=== PATIENT | female | born 1970 | race Caucasian/White ===

== ENCOUNTER 2017-09-10 14:55 | Emergency (ER) | payer BC, OTHER ==
[~2017-09-10] VITALS: Ht 157.5 cm; Wt 56.7 kg
[2017-09-10] MEDS ORDERED: UBID10 (15:02)
[2017-09-10] MEDS ORDERED: FISH OIL 1,0001 EAC1 (15:02)
[2017-09-10 15:24] LABS: BASOPHILS ABSOLUTE AUTO 0.06 K/mm3 (0.00-0.23); BASOPHILS PERCENT AUTO 1 % (0-2); EOSINOPHILS ABSOLUTE AUTO 0.04 K/mm3 (0.00-0.68); EOSINOPHILS PERCENT AUTO 1 % (0-6); Hematocrit 40.4 % (33.0-51.0); Hemoglobin 14.2 g/dL (11.5-16.0); IMMATURE GRAN ABSOLUTE AUTO 0.03 K/mm3 (0.00-0.10); IMMATURE GRAN PERCENT AUTO 0 % (0-1); LYMPHOCYTES ABSOLUTE AUTO 1.61 K/mm3 (0.84-5.20); LYMPHOCYTES PERCENT AUTO 21 % (21-46); MONOCYTES ABSOLUTE AUTO 1.26 K/mm3 (0.16-1.47); MONOCYTES PERCENT AUTO 16 % (4-13); Mean Corpuscular HGB 31.9 pg (26.0-34.0); Mean Corpuscular HGB Conc 35.1 g/dL (31.5-36.5); Mean Corpuscular Volume 91 fL (80-100); Mean Platelet Volume 10.3 fL (9.1-12.4); NEUTROPHILS ABSOLUTE AUTO 4.77 K/mm3 (1.96-9.15); NEUTROPHILS PERCENT AUTO 61 % (41-73); Platelet Count 199 K/mm3 (150-400); RDW Coefficient Variation 12.5 % (11.7-14.2); RDW Standard Deviation 41.6 fL (35.1-46.3); Red Blood Cell Count 4.45 M/mm3 (3.80-5.20); White Blood Cell Count 7.77 K/mm3 (4.00-11.30)
[2017-09-10 15:41] LABS: Alanine Aminotransfer (ALT/SGP 94 U/L (12-78); Albumin, Blood 3.5 g/dL (3.4-5.0); Albumin/Globulin Ratio 0.8 (0.8-1.8); Alk Phos 118 U/L (50-136); Anion Gap 11 mmol/L (6-16); Aspartate Aminotrans (AST/SGOT 175 U/L (12-37); Bilirubin, Total 0.5 mg/dL (0.1-1.0); Blood Urea Nitrogen 5 mg/dL (8-24); Bun/Creatinine Ratio 11.3 (12.0-20.0); CO2, Blood 27 mmol/L (21-32); Calcium, Blood 9.6 mg/dL (8.5-10.1); Chloride, Blood 98 mmol/L (98-108); Creatinine, Blood 0.44 mg/dL (0.40-1.00); Globulin, Blood 4.3 g/dL (2.2-4.0); Glomerular Filtration Rate >60 (60-); Glucose, Blood 126 mg/dL (70-99); Potassium, Blood 3.5 mmol/L (3.5-5.5); Sodium, Blood 136 mmol/L (136-145); Total Protein, Blood 7.8 g/dL (6.4-8.2)
[2017-09-10] MEDS ORDERED: Lomotil Tablet1 EACH PO (16:07)
[2017-09-10] MEDS ORDERED: PROM25 PO (16:07)
== END 2017-09-10 16:14 | disposition home or self-care (01) ==
LOC: ER 14:55
PROVIDERS: Emergency Medicine
DX: R11.2 Nausea with vomiting, unspecified (principal); R19.7 Diarrhea, unspecified; F17.210 Nicotine dependence, cigarettes, uncomplicated; Z90.49 Acquired absence of other specified parts of digestive tract
CPT/HCPCS: 80053; 85025; 96365; 96375; 99283; J2405; J2550; J7030

== ENCOUNTER 2021-12-23 16:44 | Inpatient (IN) | payer BC, OTHER ==
[~2021-12-23] VITALS: Ht 157.5 cm; Wt 67.7 kg
[~2021-12-23 16:44] MED LIST: FISH OIL 1,0001 EAC1; Lomotil Tablet1 EACH PO; PROM25 PO; UBID10
[2021-12-23 19:06] LABS: BASOPHILS ABSOLUTE AUTO 0.06 K/mm3 (0.00-0.23); BASOPHILS PERCENT AUTO 1 % (0-2); EOSINOPHILS ABSOLUTE AUTO 0.07 K/mm3 (0.00-0.68); EOSINOPHILS PERCENT AUTO 1 % (0-6); IMMATURE GRAN ABSOLUTE AUTO 0.08 K/mm3 (0.00-0.10); IMMATURE GRAN PERCENT AUTO 1 % (0-1); LYMPHOCYTES ABSOLUTE AUTO 1.51 K/mm3 (0.84-5.20); LYMPHOCYTES PERCENT AUTO 17 % (21-46); MONOCYTES ABSOLUTE AUTO 1.26 K/mm3 (0.16-1.47); MONOCYTES PERCENT AUTO 14 % (4-13); Mean Corpuscular HGB 33.8 pg (26.0-34.0); Mean Corpuscular HGB Conc 34.9 g/dL (31.5-36.5); Mean Corpuscular Volume 97 fL (80-100); Mean Platelet Volume 12.2 fL (9.1-12.4); NEUTROPHILS ABSOLUTE AUTO 6.01 K/mm3 (1.96-9.15); NEUTROPHILS PERCENT AUTO 67 % (41-73); NRBC ABSOLUTE 0.03 K/mm3 (0.00-0.02); NRBC Auto 0.3 /100 WBC (0.0-0.2); Platelet Count 60 K/mm3 (150-400); RDW Coefficient Variation 15.9 % (11.7-14.2); RDW Standard Deviation 55.9 fL (35.1-46.3); Red Blood Cell Count 1.54 M/mm3 (3.80-5.20); White Blood Cell Count 8.99 K/mm3 (4.00-11.30)
[2021-12-23 19:15] LABS: Albumin, Blood 2.1 g/dL (3.4-5.0); Albumin/Globulin Ratio 0.4 (0.8-1.8); Bun/Creatinine Ratio 25.5 (12.0-20.0); Calcium, Blood 7.8 mg/dL (8.5-10.1); Creatinine, Blood 0.28 mg/dL (0.40-1.00); Globulin, Blood 4.8 g/dL (2.2-4.0); Potassium, Blood 2.8 mmol/L (3.5-5.5); Total Protein, Blood 6.9 g/dL (6.4-8.2)
[2021-12-23 19:26] LABS: Hematocrit 14.9 % (33.0-51.0); Hemoglobin 5.2 g/dL (11.5-16.0)
[2021-12-23 22:41] LABS: International Normalized Ratio 1.42; Prothrombin Time Results 14.6 Sec (9.7-11.5)
--- NOTE | 2021-12-24 01:32 | NUR ---
REPORT FROM SHARED SERVICES MANAGER, PATIENT TO ROOM VIA STRETCHER AT 0035, SLID TO BED. PATIENT IS ALERT AND ORIENTED X4, COMPLAINING OF WEAKNESS, TREMORS PRESENT (PATIENT STATES TREMORS ARE NORMAL). PATIENT FORGETFUL OF WEAKNESS AND LIMITATIONS. 02 SATS >93% ON RA, PATIENT DENIES SOB. HR SR @90s, BP STABLE, DENIES CP PRESSURE. INCONTINENT AT TIMES, ATTENDS IN PLACE. ER REPORTED DARK STOOL, PATIENT DENIES BLOOD IN STOOL OR VOMITTING. PRBCs TRANSFUSING. PATIENT ABLE TP REPOSITION SELF IN BED. CALL LIGHT IN REACH. BED ALARM ON.
[2021-12-24 02:12] LABS: Source, Urine Straight Cath
[2021-12-24 02:37] LABS: Appearance, Urine Clear (Clear); Bilirubin, Urine Neg (Neg); Blood, Urine 1+ (Neg); Color, Urine Yellow (P-Yellow); Glucose Qualitative, Urine Neg (Neg); Ketones, Urine Neg (Neg); Leukocyte Esterase, Urine Neg (Neg); Nitrite, Urine Neg (Neg); Protein, Urine Neg (Neg); Specific Gravity, Urine 1.005 (1.003-1.022); Urobilinogen, Urine 2+ (Normal)
[2021-12-24 02:54] LABS: Bacteria Rare /hpf; Red Blood Cells, Urine 0-2 /hpf (0-2); Squamous Epithelial Cells Few /hpf (Few); White Blood Cells, Urine 0-2 /hpf (0-5)
[2021-12-24 05:48] LABS: Hematocrit 21.4 % (33.0-51.0); Hemoglobin 7.3 g/dL (11.5-16.0); Mean Corpuscular HGB 33.2 pg (26.0-34.0); Mean Corpuscular HGB Conc 34.1 g/dL (31.5-36.5); Mean Corpuscular Volume 97 fL (80-100); Mean Platelet Volume 12.3 fL (9.1-12.4); NRBC ABSOLUTE 0.02 K/mm3 (0.00-0.02); NRBC Auto 0.3 /100 WBC (0.0-0.2); Platelet Count 64 K/mm3 (150-400); RDW Coefficient Variation 17.6 % (11.7-14.2); RDW Standard Deviation 58.6 fL (35.1-46.3); White Blood Cell Count 6.79 K/mm3 (4.00-11.30)
--- NOTE | 2021-12-24 05:51 | NUR ---
SHIFT SUMMARY PATIENT IS ALERT AND ORIENTED X4. TREMORS REMAINS PRESENT. PATIENT ABLE TO MOVE ALL EXTREMETIES AND REPOSITION SELF IN BED. 02 SATS >93% ON RA, DENIES SOB. HR SR @90s, BP STABLE. PATIENT DENIES CP PRESSURE. 2 UNITS PRBCs TRANSFUSED. PROTONIX INF. PATIENT HAS GOOD URINE OUTPUT. CIWA 5 OR LESS. NO STOOLS WHILE IN PCU. CALL LIGHT IN REACH.
[2021-12-24 05:52] LABS: International Normalized Ratio 1.36
[2021-12-24 06:00] LABS: Albumin, Blood 2.1 g/dL (3.4-5.0); Albumin/Globulin Ratio 0.4 (0.8-1.8); Bilirubin, Total 6.4 mg/dL (0.1-1.0); Bun/Creatinine Ratio 18.5 (12.0-20.0); Calcium, Blood 7.5 mg/dL (8.5-10.1); Creatinine, Blood 0.32 mg/dL (0.40-1.00); Globulin, Blood 4.7 g/dL (2.2-4.0); Magnesium, Blood 1.3 mg/dL (1.6-2.4); Potassium, Blood 3.3 mmol/L (3.5-5.5); Total Protein, Blood 6.8 g/dL (6.4-8.2)
[2021-12-24 09:08] LABS: Hematocrit 21.1 % (33.0-51.0); Hemoglobin 7.4 g/dL (11.5-16.0)
[2021-12-24 09:43] LABS: Albumin, Blood 2.1 g/dL (3.4-5.0); Albumin/Globulin Ratio 0.4 (0.8-1.8); Bilirubin, Total 7.4 mg/dL (0.1-1.0); Calcium, Blood 7.6 mg/dL (8.5-10.1); Creatinine, Blood 0.29 mg/dL (0.40-1.00); Globulin, Blood 4.8 g/dL (2.2-4.0); Potassium, Blood 3.3 mmol/L (3.5-5.5); Total Protein, Blood 6.9 g/dL (6.4-8.2)
[2021-12-24 13:08] LABS: Hematocrit 21.1 % (33.0-51.0); Hemoglobin 7.4 g/dL (11.5-16.0)
[2021-12-24 17:41] LABS: Hematocrit 20.7 % (33.0-51.0); Hemoglobin 7.3 g/dL (11.5-16.0)
[2021-12-24 17:45] LABS: Bun/Creatinine Ratio 18.6 (12.0-20.0); Calcium, Blood 7.1 mg/dL (8.5-10.1); Creatinine, Blood 0.38 mg/dL (0.40-1.00); Potassium, Blood 3.8 mmol/L (3.5-5.5)
--- NOTE | 2021-12-24 18:06 | NUR ---
SHIFT SUMMARY A&Ox4, VSS, SPO2> 92% RA, SR-ST 90-110'S. QT PROLONGATION SEE EKG IN CHART, MD NOTIFIED. PT NPO SINCE 1300 FOR EGD. FAMILY AT BEDSIDE. PROTONIX GTT, OCTREOTIDE GTT, AND NS GTT INFUSING PER ORDER. CIWA SCORES RANGING FROM 8-6, ADMINISTERED ONE 25MG DOSE OF LIBRIUM. WILL CONINTUE TO MONITOR UNTIL AND PROVIDE CARE REPORT TO NOC.
--- NOTE | 2021-12-24 18:40 | NUR ---
THIS RN AGREES W/ STUDENT NURSE DOCUMENATION THIS SHIFT.
--- NOTE | 2021-12-24 19:07 | NUR ---
BROUGHT TO [facility] ADMIT TO UNIT PROPROCEDURE STARTED. STATES NPO NO IMPLANTS
--- NOTE | 2021-12-24 19:25 | NUR ---
12/24/211924 Liam Herzog See Anesthesia record DR OJEDA
--- NOTE | 2021-12-24 20:30 | NUR ---
ASSUMED CARE OF PATIENT AT APPROXIMATELY 1900 FROM CUBA Castrejon RN AND MANAGER SOLAR ELIOT. PATIENT ALERT; ORIENTED AT TIMES; FORGETUL AND CONFUSED AT TIMES. PATIENT ATTEMPTS TO AMBULATE INDEPENDENTLY; FALL RISK; TREMOR NOTED. PATIENT PULLED IV OUT 30 MINUTES AFTER COMING BACK FROM EGD; PATIENT LEFT FOR EGD AT 1900 AND RETURNED AT 1900; NO INTERVENTIONS. PATIENT'S WAS IN ROOM WHEN SHE LEFT FOR EGD AND RETURNED AROU 2024; PATIENT WAS GIVEN A WATER BOTTLE WHILE WAS HERE. PATIENT DENIES NUMBNESS, TINGLING, DIZZINESS, NAUSEA, OR PAIN. CIWA 8; MEDICATED PER EMAR. OCRETOTIDE AND PROTONIX INFUSING PER ORDERS. PATIENT LIFTS HIP FOR BEDPAN. SR ON TELE; PROLONGED QT; MD AWARE PER DAYSHIFT; OXYGEN SATURATION ABOVE 90% ON ROOM AIR. SCDS IN PLACE. ATTENDS IN PLACE.
--- NOTE | 2021-12-24 21:41 | NUR ---
THIS RN WALKS INTO ROOM BECAUSE PATIENT IS LEANING OVER BED OVER PURSE AND PUTS BLUE TUBE INTO PURSE; PATIENT STATES WAS "GETTING A MINT". WHEN ASKED ABOUT BLUE TUBE PATIENT STATE IT IS A VAPE; VAPE PLACED IN CLEAR BAG AND PUT ON SHELF BY TV AND PATIENT EDUCATED ON NO SMOKING/VAPING POLICY FOR HOSPITAL AND PATIENT CAN HAVE A NICOTINE PATCH; WILL CALL HOSPITALIST FOR ORDER.
--- NOTE | 2021-12-24 22:10 | NUR ---
CALLED DR. BERRY TO REPORT INCREASE IN CIWA; ATIVAN IV IS CURRENTLY Q2 AND NOT AVAILABLE AND LIBRUIM WAS GIVEN 1.5 HOURS AGO AND NOT AVAILABLE; ORDERS TO INCREASE FREQUENCY FROM Q2 TO Q1 HOUR FOR FREQUENCY AND CHANGE DOSE TO 1-[address] BERRY ABOUT PATIENT VAPING IN ROOM AND REQUEST FOR NICOTINE PATCH; ORDERS FOR 21MG NICOTINE PATCH.
--- NOTE | 2021-12-24 22:15 | NUR ---
ASSUMED CARE OF PATIENT AT APPROXIMATELY 1900 FROM CUBA Castrejon RN AND WAREHOUSE ASSOCIATE DRIVER ELIOT. PATIENT ALERT; ORIENTED AT TIMES; FORGETUL AND CONFUSED AT TIMES. PATIENT ATTEMPTS TO AMBULATE INDEPENDENTLY; FALL RISK; TREMOR NOTED. PATIENT PULLED IV OUT 30 MINUTES AFTER COMING BACK FROM EGD; PATIENT LEFT FOR EGD AT 1900 AND RETURNED AT 1900; NO INTERVENTIONS. PATIENT'S WAS IN ROOM WHEN SHE LEFT FOR EGD AND RETURNED AROU 2024; PATIENT WAS GIVEN A WATER BOTTLE WHILE WAS HERE. PATIENT DENIES NUMBNESS, TINGLING, DIZZINESS, NAUSEA, OR PAIN. CIWA 8; MEDICATED PER EMAR. OCRETOTIDE AND PROTONIX INFUSING PER ORDERS. PATIENT LIFTS HIP FOR BEDPAN. SR ON TELE; PROLONGED QT; MD AWARE PER DAYSHIFT; OXYGEN SATURATION ABOVE 90% ON ROOM AIR. SCDS IN PLACE. ATTENDS IN PLACE.
[2021-12-24 22:33] LABS: Hematocrit 20.1 % (33.0-51.0); Hemoglobin 6.8 g/dL (11.5-16.0)
--- NOTE | 2021-12-24 22:44 | NUR ---
CALLED DR. BERRY HEMOGLOBIN FROM 7.3 TO 6.8; EGD TONIGHT AND NOT ACTIVE BLEED REPORTED; ORDERS FOR 1 UNIT RBC AND RECHECK HEMOGLOBIN ONE HOUR AFTER.
[2021-12-25 03:53] LABS: BASOPHILS ABSOLUTE AUTO 0.07 K/mm3 (0.00-0.23); BASOPHILS PERCENT AUTO 1 % (0-2); EOSINOPHILS ABSOLUTE AUTO 0.24 K/mm3 (0.00-0.68); EOSINOPHILS PERCENT AUTO 3 % (0-6); Hematocrit 24.4 % (33.0-51.0); Hemoglobin 8.3 g/dL (11.5-16.0); IMMATURE GRAN ABSOLUTE AUTO 0.06 K/mm3 (0.00-0.10); IMMATURE GRAN PERCENT AUTO 1 % (0-1); LYMPHOCYTES ABSOLUTE AUTO 0.93 K/mm3 (0.84-5.20); LYMPHOCYTES PERCENT AUTO 12 % (21-46); MONOCYTES ABSOLUTE AUTO 1.09 K/mm3 (0.16-1.47); MONOCYTES PERCENT AUTO 15 % (4-13); Mean Corpuscular HGB 32.5 pg (26.0-34.0); Mean Corpuscular Volume 96 fL (80-100); Mean Platelet Volume 11.5 fL (9.1-12.4); NEUTROPHILS ABSOLUTE AUTO 5.11 K/mm3 (1.96-9.15); NEUTROPHILS PERCENT AUTO 68 % (41-73); Platelet Count 65 K/mm3 (150-400); RDW Coefficient Variation 19.9 % (11.7-14.2); RDW Standard Deviation 66.6 fL (35.1-46.3); Red Blood Cell Count 2.55 M/mm3 (3.80-5.20)
[2021-12-25 04:09] LABS: Albumin/Globulin Ratio 0.4 (0.8-1.8); Bun/Creatinine Ratio 16.9 (12.0-20.0); Calcium, Blood 7.1 mg/dL (8.5-10.1); Creatinine, Blood 0.36 mg/dL (0.40-1.00); Globulin, Blood 4.9 g/dL (2.2-4.0); Potassium, Blood 3.9 mmol/L (3.5-5.5); Total Protein, Blood 6.9 g/dL (6.4-8.2)
--- NOTE | 2021-12-25 06:11 | NUR ---
PATIENT SLEPT ABOUT FIVE HOURS OFF AND ON; ATTEMPTS TO AMBULATE INDEPENDENTLY T/O THE NIGHT. MEDICATED FOR CIWA UP TO 12. 1 UNIT OF RBC INFUSING AND HGB UP TO 8.3; NO OTHER ACUTE CHANGES.
[2021-12-25 07:12] LABS: HBSAG SCREEN Negative (Negative); HCV ANTIBODY <0.1 (0.0-0.9); HEP B CORE AB, TOT Negative (Negative)
--- NOTE | 2021-12-25 11:17 | NUR ---
SUBSTANCE UPDATE VAPE PEN IN BAG ON SHELF IN PT RM. PT REQUESTING BAG BE HANDED TO HER. PT INFORMED BAG W/ PEN TO REMAIN ON SHELF. PT FAMILY MEMBER TO RM, FOUND TO HAVE GIVEN VAPE PEN TO PT. PT REMINDED VAPE PEN USE NOT ALLOWED IN HOSPITAL RM. PT AGREEABLE TO THIS RN REMOVING PEN FROM RM & PLACING IN PT's LOCKED MED BOX W/ AGREEMENT TO RETURN TO PT UPON DISCHARGE. ALCOHOL - PT REPORTS DRINKING 12 WHITE CLAWS A DAY DURING WEEKEND DAYS & 5 WHITE CLAWS A DAY WEEKDAYS. PT REPORTS DAILY TEQUILA & WHISKY 2 YRS AGO BUT REPORTS ONLY AN OCCASSIONAL SALAS NOW. PT REPORTS WANTING TO REFRAIN FROM DRINKING AFTER DISCUSSION W/ MD LYN THIS AM. PT REPORTS "I WANT TO STOP. I PLAN TO QUIT, BUT I KNOW I WILL END UP STARTING UP AGAIN." PT FURTHER STATES "I HAVE ONE MORE CASE OF WHITE CLAWS AT HOME THAT I WILL FINISH, BUT THEN I WON'T DRINK AFTER THAT." PT ENCOURAGED TO HAVE WHITE CLAWS REMOVED FROM HOME IF SHE PLANS TO REFRAIN FROM DRINKING. PT REPORTS ANTIDEPRESSANT MEDICATION WILL HELP HER TO NOT DRINK ALCOHOL BECAUSE "I JUST NEED SOMETHING TO HELP." PT REPORTS DOES NOT DRINK ALCOHOL & REPORTS HE WILL BE ABLE TO HELP HER STOP DRINKING.
[2021-12-25 12:29] LABS: Hematocrit 24.1 % (33.0-51.0)
[2021-12-25 17:10] LABS: ANA DIRECT Negative (Negative); ANTI-DNA (DS) AB QN 4 IU/mL (0-9); RNP ANTIBODIES 0.4 AI (0.0-0.9); SJOGREN'S ANTI-SS-A <0.2 AI (0.0-0.9); SJOGREN'S ANTI-SS-B <0.2 AI (0.0-0.9); SMITH ANTIBODIES <0.2 AI (0.0-0.9)
--- NOTE | 2021-12-25 18:34 | NUR ---
SHIFT SUMMARY PT A&O X4 W/ SOME FORGETFULNESS. VSS. MONITOR SHOWING SR, HR 70's-90's. SPO2 > 92% ON RA W/ 2L NC APPLIED D/T DESAT TO 87% WHILE SLEEPING AT ONE POINT THIS SHIFT. PT MADE MEDICAL NO TELEMETRY THIS SHIFT. PROTONIX GTT TRANSITIONED TO PO. OCTREOTIDE GTT INFUSING PER ORDERS W/ PLAN TO INFUSE UNTIL TOMORROW @ 0900 PER MD LOPEZ INSTRUCTION. PT W/ NO SIGNS OF BLEEDING. PT RESTLESS & FIDGETING MOST OF THE SHIFT. PT CIWA: 5-10 THIS SHIFT, MEDICATED W/ PRN PO LIBRIUM X2 THIS SHIFT & PRN IV ATIVAN X1 THIS SHIFT. PT VOIDING IN BEDPAN WELL HAVING EPISODES OF INCONTINENCE. PT PURSE TAKEN HOME BY PT THIS SHIFT. PT VAPE PEN REMAINS LOCKED IN PT MED DRAWER. BED ALARM ON.
--- NOTE | 2021-12-25 20:38 | NUR ---
ASSUMED CARE OF PATIENT AT APPROXIMATELY 1900 FROM CUBA Castrejon RN. PATIENT ALERT; ORIENTED AT TIMES; FORGETUL AND CONFUSED AT TIMES. PATIENT ATTEMPTS TO AMBULATE INDEPENDENTLY; FALL RISK; CIWA 11. PATIENT PAIN, DENIES NUMBNESS, TINGLING, DIZZINESS, OR NAUSEA. MEDICATED PER EMAR. OCRETOTIDE INFUSING PER ORDERS. PATIENT LIFTS HIP FOR BEDPAN. MEDICAL NO TELE STATUS; OXYGEN SATURATION ABOVE 90% ON ROOM AIR. ATTENDS IN PLACE DUE TO INCONTINENCE; USES BEDPAN AT TIMES.
--- NOTE | 2021-12-26 03:45 | NUR ---
PATIENT VERY IRRITABLE; PULLING ON POWERGLIDE, DISROBING, PULLING ON OTHER LINES AND TUBES; VERY CONFUSED; PATIENT STATES LOCATION IS "YOUR HOUSE IN [place]" AND STATES SHE IS NOT IN THE HOSPITAL. THIS RN UNABLE TO LEAVE PATIENT ROOM DUE TO PATIENT CONTINUOUSLY ATTEMPTING TO GET OUT OF BED; PATIENT FALL RISK; PATIENT HAS TREMOR; WEAKNESS.
--- NOTE | 2021-12-26 04:10 | NUR ---
THIS RN UNABLE TO LEAVE ROOM; STUDENT SUCCESS ADVISOR FARIHA MARCIAL CALLED DR. DEAN TO REPORT NO MORE ATIVAN AVAILABLE AT THIS TIME FOR INCREASING CIWA; LAST ATIVAN GIVEN AROUND 0330; PATIENT REQUIRES LEDY DUE TO FALL RISK AND ATTEMPTING TO GET OUT OF BED CONTINUOUSLY; PATIENT PULLING AT ALL LINES, CORDS, AND TUBES; ORDERS FOR LEDY, WRIST RESTRAINTS, AND FOUR SIDE RAILS. ORDER ALSO GIVEN TO STUDENT SUCCESS ADVISOR FOR ADDITIONAL ONE TIME DOSE OF 2MG IV ATIVAN NOW.
[2021-12-26 04:47] LABS: BASOPHILS PERCENT AUTO 1 % (0-2); EOSINOPHILS ABSOLUTE AUTO 0.23 K/mm3 (0.00-0.68); EOSINOPHILS PERCENT AUTO 3 % (0-6); Hematocrit 25.4 % (33.0-51.0); Hemoglobin 8.6 g/dL (11.5-16.0); IMMATURE GRAN ABSOLUTE AUTO 0.11 K/mm3 (0.00-0.10); IMMATURE GRAN PERCENT AUTO 1 % (0-1); LYMPHOCYTES ABSOLUTE AUTO 1.13 K/mm3 (0.84-5.20); LYMPHOCYTES PERCENT AUTO 13 % (21-46); MONOCYTES ABSOLUTE AUTO 1.49 K/mm3 (0.16-1.47); MONOCYTES PERCENT AUTO 17 % (4-13); Mean Corpuscular HGB 32.2 pg (26.0-34.0); Mean Corpuscular HGB Conc 33.9 g/dL (31.5-36.5); Mean Corpuscular Volume 95 fL (80-100); Mean Platelet Volume 11.2 fL (9.1-12.4); NEUTROPHILS ABSOLUTE AUTO 5.66 K/mm3 (1.96-9.15); NEUTROPHILS PERCENT AUTO 65 % (41-73); Platelet Count 78 K/mm3 (150-400); RDW Coefficient Variation 20.1 % (11.7-14.2); Red Blood Cell Count 2.67 M/mm3 (3.80-5.20); White Blood Cell Count 8.72 K/mm3 (4.00-11.30)
[2021-12-26 05:09] LABS: Albumin/Globulin Ratio 0.4 (0.8-1.8); Bilirubin, Total 5.2 mg/dL (0.1-1.0); Bun/Creatinine Ratio 7.5 (12.0-20.0); Creatinine, Blood 0.4 mg/dL (0.40-1.00); Globulin, Blood 5.1 g/dL (2.2-4.0); Potassium, Blood 3.6 mmol/L (3.5-5.5); Total Protein, Blood 7.1 g/dL (6.4-8.2)
--- NOTE | 2021-12-26 05:29 | NUR ---
PATIENT CONTINUES TO THRASH IN BED; PULLING ON EVERYTHING WITHIN REACH; PATIENT REFUSED PO PROTONIX THIS AM AND REPORTS "I WANT TO FIND SCISSORS AND MY KIDS".
--- NOTE | 2021-12-26 06:39 | NUR ---
PATIENT SLEPT MAYBE TWO HOURS LAST NIGHT; CONTINUES TO PULL AT RESTRAINTS AND ATTEMPTING TO KICK LEGS OVER SIDE OF BED; VERY CONFUSED. INCONTINENT OF LARGE AMOUNTS OF URINE. NO OTHER ACUTE CHANGES TO REPORT.
--- NOTE | 2021-12-26 07:25 | NUR ---
ASSUMED CARE OF PATIENT AT 0700. PATIENT IS NOT INTERACTING STAFF THIS MORNING AND NOT ANSWERING QUESTION. LEDY AND BILATERAL SOFT WRISTRAINT STILL IN PLACE FOR SAFETY. PATIENT CONTINUE TO PULL LINES AND TRYING TO GET OOB WHEN AWAKE. VSS. PATIENT ON TELEMETRY WITH SR HR 80'S. PATIENT ON RA WITH SPO2 99-100%. OCTREOTIDE IS CURRENTLY INFUSING AND PLAN TO DISCONTINUE AT 0900. BED ALRAM IS ON AND IN LOW POSITION.
--- NOTE | 2021-12-26 16:06 | NUR ---
DR HANSON IN ROOM THIS TIME GIVING PATIENT'S DAUGHTER (BALJIT) AN UPDATE REGARDING PATIENT CONDITION.
--- NOTE | 2021-12-26 17:39 | NUR ---
PATIENT ALERT TO SELF. CONTINUED TO BE RESTLESS AND TRIED TO SWING BOTH LEGS OOB OFF AND ON. CIWA SCORE WAS 14. PATIENT RECEIVED 1 DOSE OF LIBRIUM & 1 DOSE OF ATIVAN SEE EMAR FOR FURTHER DETAILS. PATIENT IS INCONTINENT OF BLADDER THROUGHOUT THE DAY AND NO BM TODAY. LEDY & SOFT WRIST RESTRAINTS INPLACE FOR SAFETY. PATIENT SLEEPING AT THIS TIME. SPOUSE AT BEDSIDE. BED IN LOW POSITION. CALL LIGHT IN REACH. WILL GIVE REPORT TO ONCOMING RN.
--- NOTE | 2021-12-26 19:38 | NUR ---
THIS RN AGREES W/ STUDENT NURSE DOCUMENATION THIS SHIFT.
--- NOTE | 2021-12-26 22:02 | NUR ---
PT IS ALERT AND ORIENTED TO SELF AND LOCATION ([facility]). PT HAS CLEAR LUNG SOUNDS. HR IN THE 90'S AND SR. PT IS INCONTINENT WITH ATTENDS IN PLACE. HAS LEDY VEST AND BILATERAL WRIST RESTRAINTS IN PLACE. PT SPEECH IS GARBLED AT TIMES, BUT RESPONDS TO APPROPRIATELY TO SOME QUESTIONS. PT STATED SHE WANTED SCISSORS AND TO GO TO KITCHEN. PT IS COOPERATIVE WHEN PROVIDING CARE, BUT PULLS AT RESTRAINTS OCCASIONALLY AFTER PROVIDING CARE. PT IS STATED TO HAVE DARK, FOUL SMELLING URINE PER RN.
[2021-12-27 04:06] LABS: Hematocrit 25.7 % (33.0-51.0); Hemoglobin 8.5 g/dL (11.5-16.0)
[2021-12-27 04:20] LABS: Bun/Creatinine Ratio 10.8 (12.0-20.0); Calcium, Blood 8.2 mg/dL (8.5-10.1); Creatinine, Blood 0.37 mg/dL (0.40-1.00); Potassium, Blood 3.4 mmol/L (3.5-5.5)
--- NOTE | 2021-12-27 05:51 | NUR ---
PT STATES THAT SHE IS FEELING BETTER TODAY. STILL CONFUSED ABOUT WHERE SHE'S AT. STATES SHE'S IN [place] AND DOESN'T BELIEVE SHE'S IN THE HOSPITAL. PT SAID IT IS THURSDAY. PT IS MORE COHERENT WHILE VERBALIZING. SPEECH IS STILL SOMEWHAT GARBLED.
--- NOTE | 2021-12-27 07:40 | NUR ---
ASSUMED CARE OF PATIENT AT 0700. PATIENT IS ABLE TO TELL THIS SN HER NAME, DATE OF , MONTH, YEAR AND DATE FOR TODAY, BUT NOT ABLE TO TELL THE RIGHT LOCATION OF WERE SHE AT THIS MOMENT. PATIENT REPORT SHE IS STILL AT HOME. THIS SN REORIENT PATIENT THAT SHE STILL IN THE HOSPITAL. PATIENT SPOUSE AT BEDSIDE. PATIENT REPORT SHE HAD A GOOD NIGHT SLEPT LAST NIGHT. PATIENT IS MORE AWAKE AND ANSWER TO QUESTION APPROPRIATELY. VSS, NO C/O CP, NO N/V, ON TELEMETRY, LUNGS CLEAR, UNLABORED BREATHING. PATIENT IS ON RA WITH SPO2 94-95%. PATIENT ON LEDY VEST RESTRAINT AND 4 SIDERAILS UP FOR SAFETY. BED ALARM ON AND LOW POSITION. CALL LIGHT IN REACH.
--- NOTE | 2021-12-27 09:47 | NUR ---
DR HANSON WAS IN ROOM GIVING THE PATIENT'S UPDATE REGARDING HER CONDITION.
[2021-12-27 15:07] LABS: MITOCHONDRIAL (M2) ANTIBODY <20.0 Units (0.0-20.0)
--- NOTE | 2021-12-27 17:47 | NUR ---
SHIFT SUMMARY PATIENT STILL CONFUSED, TRIED TO GET-OUT OF BED A COUPLE OF TIMES BUT REDIRECTABLE. LEDY VEST AND FOUR SIDE RAILS UP IN PLACE FOR SAFETY. PATIENT USED BEDPAN COUPLE OF TIMES AND THE REST ARE INCONTINENT VOID THROUGHOUT THE DAY. PATIENT SLEPT OFF AND ON. CALM AND COOPRATIVE WITH CARE. CIWA SCORE WAS 8 THIS AM. RECEIVED 1 DOSE OF LIBRIUM 25 MG AND TOLERATED WELL. ON TELE SR 85 HR. NO N/V, NO CHEST PAIN/CHEST DISCOMFORT. NO BM THIS SHIFT. ATE 15% OF HER DINNER. BED IN LOW POSITION AND CALL LIGHT IN REACH.
--- NOTE | 2021-12-28 04:01 | NUR ---
SHIFT SUMMARY PT IS STILL CONFUSED AND CONTINUES TO ATTEMPT TO GET OOB WITHOUT ASSISTANCE. PT REMAINS A HIGH FALL RISK, LEDY VEST IN PLACE FOR SAFETY. SHE SLEEPS OFF AND ON THIS SHIFT. CIWA SCORES ARE LOW AND PT HAS NOT NEEDED LIBRIUM. SHE HAS BEEN INCONTINENT OF URINE. VITALS ARE STABLE. NO ACUTE CHANGES IN ASSESSMENT. BED IN LOWEST POSITION, CALL LIGHT WITHIN REACH.
[2021-12-28 04:34] LABS: Hematocrit 25.4 % (33.0-51.0); Hemoglobin 8.4 g/dL (11.5-16.0)
[2021-12-28 04:55] LABS: Bun/Creatinine Ratio 12.7 (12.0-20.0); Calcium, Blood 8.3 mg/dL (8.5-10.1); Creatinine, Blood 0.39 mg/dL (0.40-1.00); Potassium, Blood 3.5 mmol/L (3.5-5.5)
--- NOTE | 2021-12-28 07:34 | NUR ---
Pt is alert, conversant this morning, and mostly appropriate in conversation. STates that it has been "way too many days here in the hospital." Orientation seems better than yesterday, however speech is still slurred. Assisted to sit up and drink some ice water without the straw. No apparent difficulty with this. She was able to hold the cup herself. Continues to have large amounts of urinary incontinence.
--- NOTE | 2021-12-28 08:07 | NUR ---
ASSUMED CARE OF PATIENT AT 0700. PATIENT IS A&O. PATIENT IS ABLE TO TELL THIS SN THE PLACE OF WHERE SHE AT, BUT SHE COULD NOT TELL THE SPECIFIC DATE. PATIENT IS CALM AND COOPERATIVE WITH CARE. SPEECH IS CLEAR TODAY. PATIENT REPORT THAT SHE HAD A GOOD NIGHT SLEEP. SPOUSE AT BEDSIDE ASSISTING PATIENT FOR BREAKFAST. LUNGS CLEAR, NO DIFFICULTY BREATHING, ON TELEMETRY NO COMPLAIN OF CP/CHEST DISCOMFORT. NO N/V. TOLERATING FOOD AND HAS BEEN DRINKING FLUIDS WITHOUT ANY DIFFICULTY. LEDY VEST AND FOUR SIDERAILS UP FOR SAFETY. STILL ATTEMPTING TO GET OOB BUT REDIRECTABLE. BED IN LOW POSITION AND CALL LIGHT IN REACH.
--- NOTE | 2021-12-28 17:49 | NUR ---
SHIFT SUMMARY PATIENT WORK WITH PHYSICAL THERAPY THIS AM. SET UP IN THE CHAIR FOR ALMOST THREE HOURS AND STARTED TO SCOOTING HERSELF OUT OF CHAIR WITHOUT CALLING FOR ASSISTANCE. PATIENT TRANSFERRED BACK TO BED WITH TWO ASSIST WITH GAITBELT. PATIENT REPORTED SHE MISSED HOME AND WOULD LIKE TO GO HOME. PATIENT C/O OF NECK PAIN OFFERED ICE PACK/HEATING PAD BUT DECLINE. CIWA SCORE WAS 5. PATIENT HAD INCONTINENT AND CONTINENT VOID THROUGHOUT SHIFT. DR MORSE CAME AND CHECK WITH PATIENT THIS AFTRENOON AND SPOKE TO SPOUSE AT BEDSIDE. NO ORDERS AND TO CONTINUE MONITOR PATIENT. PATIENT ATE 5% OF HER DINNER. LEDY VEST AND FOUR SIDE RAILS UP FOR SAFETY. BED IN LOW POSITION. CALL LIGHT AND FLUIDS IN REACH. WILL GIVE REPORT TO ONCOMING NIGHT NURSE.
[2021-12-29 04:04] LABS: Hematocrit 25.9 % (33.0-51.0); Hemoglobin 8.7 g/dL (11.5-16.0)
[2021-12-29 04:22] LABS: Albumin, Blood 1.8 g/dL (3.4-5.0); Albumin/Globulin Ratio 0.4 (0.8-1.8); Bilirubin, Total 4.4 mg/dL (0.1-1.0); Calcium, Blood 8.3 mg/dL (8.5-10.1); Creatinine, Blood 0.42 mg/dL (0.40-1.00); Globulin, Blood 5.1 g/dL (2.2-4.0); Potassium, Blood 3.6 mmol/L (3.5-5.5); Total Protein, Blood 6.9 g/dL (6.4-8.2)
--- NOTE | 2021-12-29 05:39 | NUR ---
A/O X2-3 AND ABLE TO EXPRESS HER NEEDS. VITAL SIGNS STABLE. BEDREST THROUGHOUT SHIFT. MULTIPLE ATTENDS CHANGES DUE TO INCONTINENT VOIDS. PT RESTED COMFORTABLY THROUGHOUT SHIFT. NO REPORTS OF PAIN THROUGHOUT SHIFT. NO ACUTE CHANGES THROUGHOUT SHIFT. WILL CONTINUE TO MONITOR AND REPORT TO ONCOMING RN.
--- NOTE | 2021-12-29 09:10 | NUR ---
CARE ASSUMPTION THIS RN ASSUMED CARE FROM RAYSHAWN EDEN AT 0700. VSS. TELE SR 93. PATIENT IS ALERT AND ORIENTED X4. PERRLE. YELLOW SCALERA. PATIENT REPORTS NECK PAIN AT A 4, THIS RN REPOSITIONED AND APPLIED HEAT. PATIENT REPROTS NO CHEST PAIN/PRESSURE. STRONG RADAIL AND PEDIS PULSES. CAP REFILL <3SECONDS. NO EDEMA NOTED. PATIENT REPROTS NO SHORTNESS OF BREATH. CLEAR LUNG SOUNDS. ABD MILD DISTENTION, NONTENDER, HYPOACTIVE BOWEL TONES. SKIN HAS SOME SCATTERED BRUSING THROUGHOUT FROM HER FALL AT HOME. PATIENT HAS ATTENDS IN PLACE AND THEY ARE CLEAN. SEE SHIFT ASSESSMENT FOR FURTHER DETAILS. PATIENT PERFORMED RANGE OF MOTION ACTIVITES THIS AM. AT BEDSIDE ASSISTING PATIENT TO EAT BREAKFAST NEEDED. PATIENT ATE ABOUT 60% OF HER BREAKFAST. PATIENT TIRED AND WENT BACK TO SLEEP. MD JARVIS WAS BY AND SAID WOULD STOP BY AGAIN LATER WHEN PATIENT IS MORE AWAKE. PATIENTS GOAL TODAY IS TO GET UP TO THE CHAIR AND DEPENDING ON STRENGTH TO WALK IN THE ROOM. THIS RN USED THERAPEUTIC COMMUNICATION AND ACTIVE LISTENING. CALL LIGHT IS WITHIN REACH AND BED IN LOWEST POSITION. WILL CONTINUE TO MONITOR AND PROVIDE CARE.
--- NOTE | 2021-12-29 12:04 | NUR ---
UPDATE PATIENT GOT UP TO THE BEDSIDE CHAIR AT APPORX 1020. TWO PERSON TRANSFER WITH GAIT BELT AND WALKER. PATIENT IS SHAKEY WHEN STANDING AND HAS A SHUFFLED GAIT. PATIENT HAS BEEN SITTING IN BEDSIDE CHAIR. THIS RN GAVE THE PATIENT HER LACTULOSE DOSE AND WITHIN THE HOUR PATIENT CALLED HAVING TO USE THE BATHROOM. PATIENT UP TO BEDSIDE COMODE AND BACK TO CHAIR FOR LUNCH. CALL LIGHT WITHIN REACH.
--- NOTE | 2021-12-29 12:41 | NUR ---
UPDATE PATIENT BACK TO BED, TWO PERSON ASSIST GAIT BELT AND WALKER. PATIENT REPOSITIONED ON RIGHT SIDE. WAMR BLANKETS. CALL LIGHT WITHIN REACH AND BED IN LOWEST POSITION.
--- NOTE | 2021-12-29 17:06 | NUR ---
SHIFT SUMMARY THIS RN GAVE REPORT TO RAHEEM RN. PATIENT IS IN NO DISTRESS. VSS. NO ACUTE CHANGES THIS SHIFT. PATIENT HAD TWO BOWEL MOVEMENTS. MED STATUS WITH TELE. BED IN LOWEST POSITION. BED ALARM ON AND CALL LIGHT WITHIN REACH. THIS RN GAVE REPORT AT 1625 TO RAHEEM EDEN.
--- NOTE | 2021-12-29 18:28 | NUR ---
END OF SHIFT: PATIENT HAS BEEN UNCHANGED FROM MORNING RN REPORT, RECENT DC OF RESTRAINTS. WAS ABLE TO GET INTO THE CHAIR WITH 1-2 PEOPLE WITH MODERATE ASSISTANCE, HAS BEEN USING THE CALL LIGHT MOST OF THE TIME. BED ALARM IS ON, MUMBLE SPEECH THAT IS SOMEWHAT UNDERSTANDABLE. MED TELE, NO ACUTE SIGN OF DISTRESS. GENERAL DISCOMFORT BUT NO CHEST PAIN PRESSURE AT THIS TIME. WILL CONTINUE TO MONITOR AT THIS TIME. NO CNOCERNS FROM THIS GRAIN TRADER AT THIS TIME.
[2021-12-30 04:15] LABS: Albumin, Blood 1.9 g/dL (3.4-5.0); Albumin/Globulin Ratio 0.4 (0.8-1.8); Bilirubin, Total 4.5 mg/dL (0.1-1.0); Bun/Creatinine Ratio 14.4 (12.0-20.0); Calcium, Blood 8.2 mg/dL (8.5-10.1); Creatinine, Blood 0.35 mg/dL (0.40-1.00); Globulin, Blood 5.1 g/dL (2.2-4.0); Potassium, Blood 3.4 mmol/L (3.5-5.5)
--- NOTE | 2021-12-30 05:43 | NUR ---
SHIFT SUMMARY PT ALERT AND ORIENTED. THERE HAVE BEEN NO ACUTE CHANGES T/O THE NIGHT. VITALS HAVE BEEN STABLE. SATS >95% ON ROOM AIR. SHE HAS SAT UP VERY CLOSE TO THE SIDE OF THE BED SEVERAL TIMES TONIGHT. BED ALARM IS ACTIVE. PT IS A 2 ASSIST WITH FWW AND GB AND IS VERY UNSTEADY. SHE HAS HAD 2 LOOSE BM'S TODAY, TAKING LACTULOSE. CALL LIGHT IS WITHIN REACH.
[2021-12-30 13:07] LABS: ACTIN (SMOOTH MUSCLE) ANTIBODY 17 Units (0-19)
--- NOTE | 2021-12-30 16:08 | NUR ---
END OF SHIFT SUMMARY: PATIENT HAS BEEN RESTING MOST OF THE DAY, HAS WORKED WITH PT/OT STILL WITH THE NEED FOR SNF EVALUATION. DENIES CHEST PAIN OR PRESSURE, HAS BEEN A 1-2 ASSIST WITH GAIT BELT WALKER, VERY WEAK AND TREMULOUS, BED CHANGE, AND NEW BRIEF IN PLACE THE EVENING. PATIENT NOT JAUNDICED, BUT STILL HAVING A POOR APPETITE, ESPECIALLY IF SIGNIFICANT OTHER IS NOT PRESENT. PATIENT HAS REMAINED UNCHANGED FROM BEGINING OF THE SHIFT. PATIENT NOR THIS HOGSHEAD INSPECTOR HAVE ANY QUESTIONS CONCERNS AT THIS TIME, WILL CONTINUE TO MONITOR.
--- NOTE | 2021-12-30 21:51 | NUR ---
CARE ASSUMPTION: ASSUMED CARE FROM RAHEEM ONOFRE RN. PATIENT ASLEEP IN BED WITH SPOUSE AT BEDSIDE. HR 97-102. BED LOW AND LOCKED, CALL LIGHT IN PLACE, AND BED ALARM SET.
--- NOTE | 2021-12-31 05:32 | NUR ---
SHIFT SUMMARY: PATIENT A&O TO SELF AND PLACE. PATIENT USED BSC WITH GAIT BELT ASSISTANCE AT BEGINNING OF SHIFT BUT NEEDED TWO PERSON ASSIST TO RETURN TO BED. BED HAWK AND INCONTINENT EPISODES T/O THE REST OF SHIFT. FULL LINEN CHANGE THIS AM. NO ACUTE CHANGES OR ADVERSE EVENTS THIS SHIFT. WILL CONTINUE TO MONITOR AND REPORT TO ONCOMING RN.
--- NOTE | 2022-01-01 03:17 | NUR ---
T/F AND SUMMARY: PT T/F TO ROOM 350 AT 205 FOR FALL RISK, FREQ IMPULSIVITY AND NEED FOR HEIGHTENED SERVEILLANCE. SHE'S A/OX2-3, WAS ORIENTED TO NEW ROOM AND PROVIDED CALL LIGHT IN REACH. PT AWARE TO CALL FOR ASSIST BUT REMAINS FORGETFULL W/BED ALARM ON AND CAMERA MONITORING IN PROGRESS FOR SAFETY. SHE'S 2PA W/FWW AND GB TO [facility] D/T WEAKNESS AND UNSTEADY GAIT. PT CONTINENT/INCONT W/ATTENDS CHANGED PRN. SHE HAS GARBLED SPEECH BUT CAN ACCURATELY SPECIFY NEEDS. PT DENIED PAIN AND ALL OTHER COMPLAINTS. SHE DID REPORT BEING WORN OUT FROM PT/OT ON DAY SHIFT. NO ACUTE CHANGES, VSS/AFEBRILE AND REMAINS NSR AT 90'S BPM ON TELEMETRY. SNF RECOMMENDED AT D/C. WCTM AND REPORT TO DAY RN.
[2022-01-01 10:30] LABS: Hematocrit 28.2 % (33.0-51.0); Hemoglobin 9.2 g/dL (11.5-16.0)
--- NOTE | 2022-01-01 14:17 | NUR ---
pt is pleasant and persistant about going home. pt transfers with 1 person with FWW and GB. pt was able to walk to the bathroom to have a shower. pt had a evaluation with pt. PT suggest in home care when the patient discharges home. pt had a sodium iron gluconate infusion in the beginning of the shift. pt had new orders for po iron supplement and multivitamin supplement starting 01/02/22. pt continues to improve with transfers. pt resting in bed with call light with in reach.
--- NOTE | 2022-01-01 16:12 | NUR ---
SHIFT SUMMARY PT AWAKE AT START OF SHIFT, RESTING QUIETLY IN BED, WATCHING TV. PT UP TO BTHRM AFTER BREAKFAST TO VOID, AND AGAIN LATER TO SHOWER. PT IS WEAK AND UNSTEADY, HAVING DIFFICULTY KEEPING WALKER GOING STRAIGHT. PT STARTED 2P ASSIST USING FWW AND GB, BUT IMPROVING WITH PT/OT. PT HAS BEEN UP WITH 1P ASSIST USING FWW AND GB TO AMBULATE IN FROM BED TO CHAIR AND BTHRM. PT WAS TO GO TO SNF AT D/C, BUT WOULD RATHER GO HOME. PT HOPING TO BECOME MORE MOBILE BEFORE D/C, SO SHE CAN JUST GO HOME. TO RM TO VISIT THIS AM FOR A WHILE. SCELERA AND SKIN JAUNDICE D/T ALCOHOLIC CIRRHOSIS. SR ON TELE. BED AND CHAIR ALARM USED FOR SAFTEY. CALL LT IN REACH.
--- NOTE | 2022-01-02 04:04 | NUR ---
Patient with hypotension overnight. Up in room with 1 assist. Unsteady. Voiding in the BSC, concentrated but suffient quantity. Patient calling her duaghter multiple times in the night and the daughter calling me to say her mother seems more confused. Bed exit alarm in place. Gait belt on patient overnight as patient moves oob quickly at times. Skn inspection reveals multile old scrapes and healing bruises from old falls. No acute skin issue noted.
--- NOTE | 2022-01-02 19:18 | NUR ---
SHIFT SUMMARY PT IS STILL CONFUSED AND SLURRING AND IS HAVING DIFFICULTY BEING DIRECTABLE. SHE IS ADMANT ON WALKING WITHOUT ASSISTANCE AND DOES NOT CALL FOR HELP TO USE THE RESTROOM. SHE IS INCONT AND WETS HEAVILY. SHE HAS BEEN RESTING IN BED AND HAD NO COMPLAINED OF PAIN OR SOB. STILL WAITING TO DISCHARGE TO SNF.
--- NOTE | 2022-01-03 05:05 | NUR ---
Patient with VSS on RA Overnight. Up with 1 assist, gait belt, and walker. VOiding in bedside commode. Incontinent at times. Patient still with slurred speech and poor judgement. Setting off bed exit alarm multiple times. Patient sleeping the majority of the night. Jaundiced. No acute skin issues. Patient awaiting rehab placement.
--- NOTE | 2022-01-03 13:05 | NUR ---
ORTHOSTATIC VS: LYING 102/55 93 SITTING 107/62 102 STANDING 105/50 126 DENIED DIZZINESS AND SOB, UNSTEADY WHILE STANDING.
--- NOTE | 2022-01-03 17:27 | NUR ---
SHIFT SUMMARY: NO ACUTE EVENTS. DENIED PAIN. GETTING UP TO BR WITH FWW AND 1 PERSON ASSIST, GAIT IS UNSTEADY AND SHE IS SHAKY. A&O X 2, UNSURE OF DATE. NO S/S OF BLEEDING TODAY. APPETITE OK, TAKING PO FLUIDS. SPOUSE VISITED TODAY AND WAS ABLE TO SPEAK TO DR. JARVIS; PLAN IS TO D/C HOME TOMORROW WITH HOME HEALTH.
--- NOTE | 2022-01-04 04:29 | NUR ---
Patient with VSS on RA overnight. Anxious to be DC on 01/04. Up multiple times in the night to urinate and walk in the daugherty. Up with gait belt, walker, and SBA. Still incontinent at times. alert and cooperative overnight.
[2022-01-04 08:53] LABS: BASOPHILS ABSOLUTE AUTO 0.13 K/mm3 (0.00-0.23); BASOPHILS PERCENT AUTO 1 % (0-2); EOSINOPHILS PERCENT AUTO 2 % (0-6); Hematocrit 30.1 % (33.0-51.0); Hemoglobin 9.8 g/dL (11.5-16.0); IMMATURE GRAN ABSOLUTE AUTO 0.03 K/mm3 (0.00-0.10); IMMATURE GRAN PERCENT AUTO 0 % (0-1); LYMPHOCYTES ABSOLUTE AUTO 1.41 K/mm3 (0.84-5.20); LYMPHOCYTES PERCENT AUTO 15 % (21-46); MONOCYTES ABSOLUTE AUTO 1.31 K/mm3 (0.16-1.47); MONOCYTES PERCENT AUTO 14 % (4-13); Mean Corpuscular HGB 33.6 pg (26.0-34.0); Mean Corpuscular HGB Conc 32.6 g/dL (31.5-36.5); Mean Corpuscular Volume 103 fL (80-100); Mean Platelet Volume 11.6 fL (9.1-12.4); NEUTROPHILS ABSOLUTE AUTO 6.47 K/mm3 (1.96-9.15); NEUTROPHILS PERCENT AUTO 68 % (41-73); Platelet Count 177 K/mm3 (150-400); RDW Coefficient Variation 20.2 % (11.7-14.2); Red Blood Cell Count 2.92 M/mm3 (3.80-5.20); White Blood Cell Count 9.55 K/mm3 (4.00-11.30)
[2022-01-04 09:12] LABS: Albumin/Globulin Ratio 0.3 (0.8-1.8); Bun/Creatinine Ratio 16.2 (12.0-20.0); Calcium, Blood 8.6 mg/dL (8.5-10.1); Creatinine, Blood 0.37 mg/dL (0.40-1.00); Potassium, Blood 3.6 mmol/L (3.5-5.5)
[2022-01-04] MEDS ORDERED: FERSU300 PO (11:38)
[2022-01-04] MEDS ORDERED: MULVITA PO (11:39)
[2022-01-04] MEDS ORDERED: PANT40 PO (11:40)
--- NOTE | 2022-01-04 12:48 | NUR ---
PATIENT DISCHARGED TO HOME WITH SPOUSE. PERSONAL WALKER DELIVERED TO PATIENT FROM [facility]. NO IV ACCESS. VERBALIZED UNDERSTANDING OF D/C INSTRUCTIONS. OFF UNIT AT 1247 VIA W/C. NO PERSONAL BELONGINGS LEFT BEHIND IN ROOM.
== END 2022-01-04 13:14 | disposition home health service (06) | DRG 432 ==
LOC: ER 16:44 → PCU 21:47 → ERHOLD 21:47 → PCU 12-24 00:29 → MEDS 12-31 15:27
PROVIDERS: Emergency Medicine; Family Medicine; Internal Medicine; Internal Medicine Gastroenterology; Student in an Organized Health Care Education/Training Program; ADMIT Internal Medicine
PROC: 30233N1 Transfusion of Nonautologous Red Blood Cells into Peripheral Vein, Percutaneous Approach (ICD-10-PCS; principal; 2021-12-23)
PROC: 0DJ08ZZ Inspection of Upper Intestinal Tract, Via Natural or Artificial Opening Endoscopic (ICD-10-PCS; 2021-12-24)
DX: K70.10 Alcoholic hepatitis without ascites (principal); G92.8 Other toxic encephalopathy; F10.239 Alcohol dependence with withdrawal, unspecified; K76.6 Portal hypertension; K92.1 Melena; D62 Acute posthemorrhagic anemia; E87.1 Hypo-osmolality and hyponatremia; I85.10 Secondary esophageal varices without bleeding; I95.9 Hypotension, unspecified; K70.30 Alcoholic cirrhosis of liver without ascites; E87.6 Hypokalemia; D69.59 Other secondary thrombocytopenia; K31.89 Other diseases of stomach and duodenum; F17.210 Nicotine dependence, cigarettes, uncomplicated; Z91.012 Allergy to eggs; Z78.1 Physical restraint status; Z98.51 Tubal ligation status; Z90.49 Acquired absence of other specified parts of digestive tract; Z79.899 Other long term (current) drug therapy
CPT/HCPCS: 36415; 36430; 70450; 71045; 76700; 80048; 80053; 81001; 82103; 82105; 82140; 82390; 82947; 83735; 84484; 85014; 85018; 85025; 85027; 85610; 86015; 86225; 86235; 86317; 86381; 86704; 86708; 86803; 86850; 86900; 86901; 86923; 87340; 93005; 93010; 93306; 96365; 96375; 96376; 97110; 97112; 97116; 97162; 97165; 97530; 97535; 99285-25; A9270; C1751; C9113; G0480; J0696; J2060; J2354; J2405; J2704; J2916; J3411; J3475; J3480; J7030; J7040; J7042; J7050; J7120; P9016

== ENCOUNTER 2022-01-15 18:24 | Emergency (ER) | payer BC, OTHER ==
[~2022-01-15] VITALS: Ht 157.5 cm; Wt 65.8 kg
[~2022-01-15 18:24] MED LIST changes: +FERSU300 PO; +MULVITA PO; +PANT40 PO
[2022-01-15] MEDS ORDERED: LACTULOSE20 GM/30 M PO (20:56)
== END 2022-01-15 21:22 | disposition home or self-care (01) ==
LOC: ER 18:24
DX: K72.90 Hepatic failure, unspecified without coma (principal); F17.290 Nicotine dependence, other tobacco product, uncomplicated; Z91.012 Allergy to eggs; Z79.899 Other long term (current) drug therapy
CPT/HCPCS: 99283-25; A9270